=== PATIENT | female | born 1960 | race Caucasian/White ===

== ENCOUNTER → 2019-06-19 11:44 | Outpatient (CLI) | payer OTHER, SELFPAY ==
--- NOTE | 2019-06-19 11:52 | DI.CT.S_ITS ---
PROCEDURE: CT SOFT TISSUE NECK WO/W CON INDICATIONS: LOCALIZED SWELLING MASS AND LUMP IN NECK TECHNIQUE: Before and after the administration of intravenous contrast, 2.0 mm axial sections acquired through the neck and down to the mateusz. Additional 2.0 mm coronal and sagittal reformats were generated of the contrast enhanced images. For radiation dose reduction, the following was used: automated exposure control. COMPARISON: [facility], CR, CERVICAL SPINE 4 VIEWS, 12/25/2010, 15:25. [facility], MR, C-SPINE WITHOUT CONTRAST, 12/29/2010, 7:06. FINDINGS: Image quality: Excellent. Parathyroid: No parathyroid masses are seen. Thyroid: The thyroid gland demonstrates an unremarkable CT appearance. Lymph nodes: No enlarged lymph nodes seen throughout the neck. Vessels: Visualized vasculature appears patent. Neck spaces: The oropharynx, nasopharynx, and pharynx demonstrate no mucosal lesions. The vocal cords, false vocal cords, pyriform sinuses, epiglottis, vallecula, and tongue base all appear normal. Extramucosal spaces appear unremarkable. Glands: The areas of clinical concern are marked on the right side, within the region of the parotid gland. Just superior to the parotid gland, there is a rim-enhancing focus seen, as on series 6 image 14 that measures 14 x 13 mm in greatest axial dimension. The central portion of this measures up 20 Hounsfield units on precontrast imaging and 25 Hounsfield units on postcontrast imaging. Within the inferior aspect of the right parotid, there is an irregular ovoid lesion seen, as on series 5 image 46 that measures 2.4 cm in the caudal by 1.6 cm transversely, with AP extent of 1.8 cm. This lesion demonstrates heterogeneity, with mild irregular enhancement anteriorly. No left-sided parotid lesions are seen. The submandibular glands appear normal. Miscellaneous: Visualized lungs appear clear. Superficial soft tissues appear normal. Bones: No suspicious bony lesions. Visualized sinuses and mastoids appear unremarkable. Unremarkable anterior hardware is seen at the C5-C6 level. Cervical spine degenerative changes are seen, which are most prominent inferiorly. IMPRESSION: 2 lesions are seen at the areas of clinical concern involving the right parotid gland. One is seen at the inferior aspect of the right prominent and demonstrates mild heterogeneous enhancement. This may be related to a primary parathyroid mass (including a pleomorphic adenoma and Warthin's tumor), an intraparotid lymph node, or potentially metastatic disease. A 2nd lesion is seen superior to the parotid itself and has the appearance of a mildly rim-enhancing cyst. (By history, these masses have been previously biopsied. Please correlate with biopsy results.) Incidental note is made of: C5-C6 postoperative change Dictated by: Geoff Carvajal M.D. on 06/19/2019 at 13:16 Approved by: Geoff Carvajal M.D. on 06/19/2019 at 13:23
== END ==
PROVIDERS: PCP Family Medicine; Visit Provider Otolaryngology
DX: R22.1 Localized swelling, mass and lump, neck (principal)
CPT/HCPCS: 70492; Q9967

== ENCOUNTER 2020-06-25 07:21 | Observation (INO) | payer OTHER, SELFPAY ==
[2020-06-25] VITALS (25 sets, daily range): BP systolic 165–208; BP diastolic 85–117; PULSE 76–93; RESP 11–33; TEMP 36.5–36.7; O2SAT 91–98; BMI 42.0
--- NOTE | 2020-06-25 | DI.MRI.S_ITS ---
PROCEDURE: MR ANGIO HEAD WO CON INDICATIONS: FOGGY TECHNIQUE: Noncontrast axial 3-D [id number] MR angiogram, with 3-dimensional maximum intensity projection (MIP) reformats of the internal carotid arteries and posterior circulation then performed. COMPARISON: None. FINDINGS: Image quality: Excellent. Anterior circulation: Intracranial internal carotid arteries demonstrate normal size and intraluminal flow signal. The flow within the paired anterior cerebral arteries is normal and symmetric. The flow within the middle cerebral arteries is normal and symmetric. The anterior communicating artery is seen. No stenoses, occlusions, or aneurysms. Posterior circulation: Visualized portions of the vertebral arteries demonstrate normal caliber, and join to form a normal appearing basilar artery. The flow within the posterior cerebral arteries is normal and symmetric. No stenoses, occlusions, or aneurysms. IMPRESSION: No branch occlusion or flow limiting stenosis of the major intracranial arterial circulation. No evidence of intracranial aneurysm. Dictated by: Gerber Sue M.D. on 06/25/2020 at 10:55 Approved by: Gerber Sue M.D. on 06/25/2020 at 10:56
--- NOTE | 2020-06-25 07:34 | DI.CT.S_ITS ---
PROCEDURE: CT HEAD/BRAIN WO CON INDICATIONS: difficulty speaking TECHNIQUE: Noncontrast 4.5 mm thick angled axial sections acquired from the foramen magnum to the vertex, with coronal and sagittal reformats. For radiation dose reduction, the following was used: automated exposure control, adjustment of mA and/or kV according to patient size. COMPARISON: None. FINDINGS: Image quality: Excellent. CSF spaces: Basal cisterns are patent. No extra-axial fluid collections. Ventricles are normal in size and shape. Brain: No midline shift. No intracranial masses or hemorrhage. [place]-white matter interface is normal. Skull and face: Calvarium and visualized facial bones are intact, without suspicious lesions. Sinuses: Visualized sinuses and mastoids are clear. IMPRESSION: No acute intracranial finding. Dictated by: Gerber Sue M.D. on 06/25/2020 at 7:56 Approved by: Gerber Sue M.D. on 06/25/2020 at 7:57
[2020-06-25 07:44] LABS: Add Manual Diff / Slide Review NO; Basophils Absolute Auto 100 /uL (0-100); Basophils Percent Auto 1.3 % (0-2); Eosinophils Absolute Auto 200 /uL (0-450); Eosinophils Percent Auto 1.9 % (2-4); Hematocrit 47.6 % (36-46); Hemoglobin 15.8 g/dL (12.0-16.0); Lymphocytes Absolute Auto 3600 /uL (1100-4500); Lymphocytes Percent Auto 36.4 % (25-40); Mean Corpuscular HGB Conc 33.2 % (30-36); Mean Corpuscular Hemoglobin 30.4 PG (26-34); Mean Corpuscular Volume 91.6 fL (80-100); Monocytes Absolute Auto 600 /uL (0-900); Monocytes Percent Auto 6.5 % (3-14); Neutrophils Absolute Auto 5300 /uL (1500-7000); Neutrophils Percent Auto 53.9 % (50-75); Platelet Count 308 X10^3/uL (150-400); Red Blood Cell Count 5.19 X10^6/uL (4.0-5.2); Red Cell Distribution Width 14.2 % (11.6-14.8); White Blood Cell Count 9.8 X10^3/uL (4.5-11.0)
[2020-06-25 07:50] LABS: Prothrombin Time 11.3 SECONDS (10.1-12.7)
--- NOTE | 2020-06-25 07:50 | ED.NEUROSD ---
HPI - Neuro Symptoms/Deficit General Chief Complaint: Neuro Symptoms/Deficit Stated Complaint: possible stroke Time Seen by Provider: 06/25/20 07:34 Source: patient and family Mode of arrival: Wheelchair Limitations: no limitations History of Present Illness HPI Narrative: Patient is a 60-year-old female presents with a legs difficulty speaking. Difficult to tell exactly when it started but she says she has gotten up at 4:30 this morning as she thought she was normal at that time she woke up again at 6 and slowly started to feel that she has some difficulty speaking and maybe some right arm numbness. She says the episodes last about 10-20 minutes and resolved of this is her 3rd episode. I am able to understand her but she does have some mild slurring. Her speech improved while I was in the room. Related Data Previous Rx's Medication Instructions Recorded aspirin [Adult Aspirin Regimen] 81 mg PO DAILY 30 Days #30 tab 06/25/20 atorvastatin [Lipitor] 40 mg PO BEDTIME 30 Days #30 tab 06/25/20 clopidogrel 75 mg PO DAILY 21 Days #21 tab 06/25/20 Allergies Allergy/AdvReac Type Severity Reaction Status Date / Time bee venom protein (honey bee) Allergy Unknown Verified 04/19/19 19:24 NSAIDS (Non-Steroidal Allergy Unknown Verified 04/19/19 19:24 Anti-Inflamma Steroid Allergy Unknown Uncoded 04/19/19 19:24 Review of Systems Review of Systems Narrative: GENERAL: Denies chills, fatigue, malaise, fever, sweats, travel HEENT: Denies sinus pain, ear pain, sore throat, difficulty swallowing, neck pain RESPIRATORY: Denies dyspnea, cough, wheezing, hemoptysis, sputum. CARDIOVASCULAR: Denies chest pain, palpitations, orthopnea, edema GASTROINTESTINAL: Denies nausea, vomiting, abdominal pain, diarrhea, constipation, melena. : Denies dysuria, frequency, incontinence, hematuria, urinary retention, flank pain. MUSCULOSKELETAL: Denies weakness, joint pain, or bony pain SKIN: No rash, no erythema, no pruritus NEUROLOGIC: See HPI PSYCHIATRIC: No concerning psychosocial issues. 12 point review of systems is negative except for those stated above and HPI Patient History Medical History Fibromyalgia (Chronic ~2008) Herpes (Inactive ~1978) Sleep apnea (Chronic ~1999) Tinnitus (Chronic) Surgical History Anesthesia (Resolved) History of neck surgery (Resolved) History of shoulder surgery (Resolved) History of surgery (Resolved) Social History household members: spouse Smoking Status: Current every day smoker alcohol intake: never Smoking Status: Current every day smoker (1/2 pack ) Exam Initial Vital Signs Initial Vital Signs: Vital Signs Temperature 98.0 F 06/25/20 07:25 Pulse Rate 88 06/25/20 07:25 Respiratory Rate 20 06/25/20 07:25 Blood Pressure 190/117 H 06/25/20 07:25 Pulse Oximetry 98 06/25/20 07:25 GENERAL: Well-appearing, well-nourished and in no acute distress. HEENT: Head atraumatic,EOMI, pupils reactive, face symmetric, moist mucous membranes, no teeth CARDIOVASCULAR: Regular rate and rhythm without murmurs, rubs or gallops. RESPIRATORY: Breath sounds equal bilaterally, no wheezes rales or rhonchi. ABDOMEN: Soft, nontender. Normoactive bowel sounds all 4 quadrants. No guarding or rebound. EXTREMITIES: Normal range of motion, no clubbing or edema. Neurovascularly intact NEUROLOGICAL: Alert and oriented x4.Normal gait. mild dysarthria. Cranial nerves II through XII grossly intact. Good kxcage-wa-wdti, good vqga-zg-uvao, strength equal bilaterally, no dysarthria or aphasia, sensation in tact to soft touch bilaterally, no visual changes, no facial droop SKIN: Warm, dry, no laceration, no petechiae, no rashes or lesions. Scores NIH Stroke Scale Level of Conciousness: Alert, keenly responsive Ask month/age: Answers both questions correctly. Open/close eyes, close hand: Performs both tasks correctly Best gaze horizontal: Normal Visual aquino: No visual loss Facial palsy: Normal symetrical movement Left arm drift: No drift for full 10 sec Right arm drift: No drift for full 10 sec Left leg drift: No drift for full 10 sec Right leg drift: No drift for full 10 sec Limb ataxia: Absent Sensory on face/arms/legs: Normal, no sensory loss Best language: No aphasia, normal Dysarthria: Mild to mod,some slurring Extinction or inattention: No abnormality Total NIH Stroke scale score: 1 Course Orders Ordered: Discontinued Medications Aspirin (Aspirin) 325 mg PO NOW ONE Stop: 06/25/20 08:14 Last Admin: 06/25/20 08:40 Dose: 325 mg Documented by: DIAZ Atorvastatin Calcium (Lipitor) 40 mg PO BEDTIME AN Clopidogrel Bisulfate (Plavix) 300 mg PO NOW ONE Stop: 06/25/20 11:08 Last Admin: 06/25/20 11:23 Dose: 300 mg Documented by: DIAZ Clopidogrel Bisulfate (Plavix) 75 mg PO DAILY AN Hydralazine HCl (Apresoline) 10 mg IV Q6HR PRN PRN Reason: Hypertension Stop: 06/26/20 13:27 Nicotine (Nicoderm) 21 mg TOP NOW ONE Stop: 06/25/20 10:59 Last Admin: 06/25/20 11:23 Dose: 21 mg Documented by: DIAZ Vital Signs Vital signs: Vital Signs - 8 hr 06/25/20 07:25 06/25/20 07:49 06/25/20 07:50 Temperature 98.0 F Pulse Rate 88 89 89 Respiratory Rate 20 17 22 Blood Pressure 190/117 H 189/87 H Pulse Oximetry 98 95 94 06/25/20 08:00 06/25/20 08:01 06/25/20 08:30 Temperature Pulse Rate 85 84 81 Respiratory Rate 26 H 20 20 Blood Pressure 170/98 H Pulse Oximetry 93 91 95 06/25/20 09:00 06/25/20 09:05 06/25/20 09:09 Temperature Pulse Rate 77 82 78 Respiratory Rate 15 25 H 17 Blood Pressure 165/85 H Pulse Oximetry 93 91 93 MDM - Neuro Symptoms/Deficit Lab Data Attestation: I reviewed the patient's lab results. Result diagrams: 06/25/20 07:30 06/25/20 07:30 Labs: Lab Results 06/25/20 06/25/20 06/25/20 Range/Units 07:30 07:30 07:30 WBC 9.8 (4.5-11.0) X10^3/uL RBC 5.19 (4.0-5.2) X10^6/uL Hgb 15.8 (12.0-16.0) g/dL Hct 47.6 H (36-46) % MCV 91.6 (80-100) fL MCH 30.4 (26-34) PG MCHC 33.2 (30-36) % RDW 14.2 (11.6-14.8) % Plt Count 308 (150-400) X10^3/uL Neut % (Auto) 53.9 (50-75) % Lymph % (Auto) 36.4 (25-40) % [place] % (Auto) 6.5 (3-14) % Eos % (Auto) 1.9 L (2-4) % Baso % (Auto) 1.3 (0-2) % Neut # (Auto) 5300 (4583-5276) /uL Lymph # (Auto) 3600 (1929-6675) /uL [place] # (Auto) 600 (0-900) /uL Eos # (Auto) 200 (0-450) /uL Baso # (Auto) 100 (0-100) /uL PT 11.3 (10.1-12.7) SECONDS INR 1.0 (0.9-1.3) APTT 38 H (26.4-36.2) SECONDS Sodium 139 (137-145) mmol/L Potassium 4.3 (3.4-5.1) mmol/L Chloride 103 (98-107) mmol/L Carbon Dioxide 29 (22-32) mmol/L BUN 12 (7-17) mg/dL Creatinine 0.74 (0.52-1.04) mg/dL Estimated GFR > 60.0 (>60) mL/min BUN/Creatinine Ratio 16.2 (6-22) Glucose 99 (70-100) mg/dL Calcium 9.4 (8.4-10.2) mg/dL Total Bilirubin 0.5 (0.2-1.3) mg/dL AST 23 (14-36) IU/L ALT 20 (<35) IU/L Alkaline Phosphatase 68 (38-126) U/L Total Creatine Kinase 114 (30-135) U/L CK-MB (CK-2) 1.28 (<2.37) ng/mL CK-MB (CK-2) Rel Index 1.1 L (1.5-5.0) % Troponin I < 0.012 (0.01-0.034) ng/mL Total Protein 7.8 (6.3-8.2) g/dL Albumin 4.4 (3.5-5.0) g/dL Globulin 3.4 (1.7-4.1) g/dL Albumin/Globulin Ratio 1.3 (1.0-2.8) U Opiates 300ng/mL cut (Negative) Ur Oxycodone Screen (Negative) Urine Methadone Screen (Negative) Ur Barbiturates Screen (Negative) U Tricyclic Antidepress (Negative) Ur Phencyclidine Scrn (Negative) Ur Amphetamines Screen (Negative) U Methamphetamines Scrn (Negative) Ur MDMA Scrn (Ecstasy) (Negative) U Benzodiazepines Scrn (Negative) Urine Cocaine Screen (Negative) U Marijuana (THC) Screen (Negative) 06/25/20 Range/Units 08:25 WBC (4.5-11.0) X10^3/uL RBC (4.0-5.2) X10^6/uL Hgb (12.0-16.0) g/dL Hct (36-46) % MCV (80-100) fL MCH (26-34) PG MCHC (30-36) % RDW (11.6-14.8) % Plt Count (150-400) X10^3/uL Neut % (Auto) (50-75) % Lymph % (Auto) (25-40) % [place] % (Auto) (3-14) % Eos % (Auto) (2-4) % Baso % (Auto) (0-2) % Neut # (Auto) (9760-4547) /uL Lymph # (Auto) (5143-0175) /uL [place] # (Auto) (0-900) /uL Eos # (Auto) (0-450) /uL Baso # (Auto) (0-100) /uL PT (10.1-12.7) SECONDS INR (0.9-1.3) APTT (26.4-36.2) SECONDS Sodium (137-145) mmol/L Potassium (3.4-5.1) mmol/L Chloride (98-107) mmol/L Carbon Dioxide (22-32) mmol/L BUN (7-17) mg/dL Creatinine (0.52-1.04) mg/dL Estimated GFR (>60) mL/min BUN/Creatinine Ratio (6-22) Glucose (70-100) mg/dL Calcium (8.4-10.2) mg/dL Total Bilirubin (0.2-1.3) mg/dL AST (14-36) IU/L ALT (<35) IU/L Alkaline Phosphatase (38-126) U/L Total Creatine Kinase (30-135) U/L CK-MB (CK-2) (<2.37) ng/mL CK-MB (CK-2) Rel Index (1.5-5.0) % Troponin I (0.01-0.034) ng/mL Total Protein (6.3-8.2) g/dL Albumin (3.5-5.0) g/dL Globulin (1.7-4.1) g/dL Albumin/Globulin Ratio (1.0-2.8) U Opiates 300ng/mL cut Negative (Negative) Ur Oxycodone Screen Negative (Negative) Urine Methadone Screen Negative (Negative) Ur Barbiturates Screen Negative (Negative) U Tricyclic Antidepress Negative (Negative) Ur Phencyclidine Scrn Negative (Negative) Ur Amphetamines Screen Negative (Negative) U Methamphetamines Scrn Negative (Negative) Ur MDMA Scrn (Ecstasy) Negative (Negative) U Benzodiazepines Scrn Negative (Negative) Urine Cocaine Screen Negative (Negative) U Marijuana (THC) Screen Negative (Negative) Point of Care Testing Glucose POC 82 Urine Dip Bedside Urine Glucose Negative Bedside Urine Bilirubin - Negative Bedside Urine Ketone - Negative Urine Specific [place] 1.010 Bedside Urine Occult Blood - Negative Bedside Urine pH 7.0 Bedside Urine Protein - Negative Bedside Urine Urobilinogen - Negative Bedside Urine Nitrite - Negative Bedside Urine Leukocytes - Negative Esterase Imaging Data CT scan - head: Radiologist's Impression: PROCEDURE: CT HEAD/BRAIN WO CON INDICATIONS: difficulty speaking TECHNIQUE: Noncontrast 4.5 mm thick angled axial sections acquired from the foramen magnum to the vertex, with coronal and sagittal reformats. For radiation dose reduction, the following was used: automated exposure control, adjustment of mA and/or kV according to patient size. COMPARISON: None. FINDINGS: Image quality: Excellent. CSF spaces: Basal cisterns are patent. No extra-axial fluid collections. Ventricles are normal in size and shape. Brain: No midline shift. No intracranial masses or hemorrhage. [place]-white matter interface is normal. Skull and face: Calvarium and visualized facial bones are intact, without suspicious lesions. Sinuses: Visualized sinuses and mastoids are clear. IMPRESSION: No acute intracranial finding. Dictated by: Gerber Sue M.D. on 06/25/2020 at 7:56 MR head: Radiologist's Impression: PROCEDURE: MR HEAD/BRAIN WO CON INDICATIONS: tia TECHNIQUE: Noncontrast axial T1 spin echo, axial T2 fast spin echo, sagittal and axial FLAIR, coronal T2 fast spin echo, axial gradient echo, axial diffusion and ADC through the brain. COMPARISON: None. FINDINGS: Image quality: Excellent. CSF Spaces: Basal cisterns are patent. No extra-axial fluid collections. Ventricles are normal in size and shape. Brain: No intracranial masses or hemorrhage. [place]/white matter interface is normal. Brainstem appears normal. Diffusion-weighted images demonstrate a 6 mm diameter focus of elevated signal intensity within the left castellanos radiata extending into the left posterior basal ganglia, which demonstrates low ADC map and moderate FLAIR signal elevation. No chronic ischemic insults. Normal intravascular flow voids are present. Skull and face: Calvarium has normal marrow signal. Orbits appear normal. Sinuses: Sinuses and mastoids are clear. IMPRESSION: 1. Small subacute infarct within the left castellanos radiata and basal ganglia. 2. No acute process. No acute intracranial hemorrhage. Dictated by: Bina Richardson M.D. on 06/25/2020 at 10:54 CTA: Radiologist's Impression: PROCEDURE: CT ANGIO HEAD AND NECK INDICATIONS: known stroke worsening speech TECHNIQUE: Pre-contrast 4.5 mm thick sections acquired from the foramen magnum to the vertex. After the administration of intravenous contrast, 1 mm thick sections acquired from the aortic arch through the [place] of [place]. Post-contrast 4.5 mm thick sections then re-acquired from the foramen magnum to the vertex. 3-dimensional ynfpknr-irbbariiw-veupsglmyn (MIP) and/or volume rendering reformats were acquired of the central intracranial vasculature and neck separately. COMPARISON: [facility], MR, MR HEAD/BRAIN WO CON, 06/25/2020, 10:18. [facility], MR, MR ANGIO HEAD WO CON, 06/25/2020, 10:18. [facility], CT, CT HEAD/BRAIN WO CON, 06/25/2020, 7:38. FINDINGS: Image quality: Excellent. BRAIN: CSF spaces: Ventricles are normal in size and shape. Basal cisterns are patent. No extra-axial fluid collections. Brain: No midline shift. No intracranial bleeds or masses. [place]-white matter interface appears intact. Skull and face: Calvarium and facial bones appear intact, without suspicious lesions. Orbits appear normal. Sinuses: Mild mucosal thickening in the right maxillary sinus. Small mucous retention cyst versus polyp in the left maxillary sinus. The mastoids are clear. HEAD CT ANGIOGRAPHY: Anterior circulation: Intracranial internal carotid arteries are normal in flow. Atherosclerotic calcification noted in the cavernous segments of the internal carotid arteries bilaterally which causes mild narrowing of the vessels. The flow within the paired anterior cerebral arteries is normal and symmetric. 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 The flow within the middle cerebral arteries is normal and symmetric. The anterior communicating artery is seen. No aneurysms are seen. Posterior circulation: Visualized portions of the vertebral arteries demonstrate normal caliber, and join to form a normal appearing basilar artery. Flow within the posterior cerebral arteries is normal and symmetric. No aneurysms are seen. Dural sinuses demonstrate normal postcontrast enhancement. NECK CT ANGIOGRAPHY: Carotid system: The great vessels demonstrate a conventional anatomy as they arise from the aortic arch. The origins of the common carotid arteries appear patent. The common carotid arteries demonstrate normal caliber and courses. Soft and calcified atherosclerotic plaque noted in the origins of the internal carotid arteries bilaterally which causes less than 50% stenosis of the vessels. Posterior circulation: The origins of the vertebral arteries both appear widely patent. The more superior extracranial portions of both vertebral arteries also demonstrate normal courses and calibers. They join to form a normal appearing basilar artery. Soft tissues: Visualized neck soft tissues demonstrate no suspicious abnormalities. Emphysematous changes noted in the lung apices bilaterally. Bones: No suspicious bony lesions. Cervical spine fixation hardware. Spine degenerative disc disease and facet arthropathy.Visualized cervical spine appears normally aligned. IMPRESSION: 1. No acute intracranial disease process. 2. No large vessel occlusion, hemodynamically significant vascular stenosis, vascular dissection or aneurysm. Any quantitative measurements of stenosis were performed using NASCET criteria. Dictated by: Alethea Rivera MD, PhD on 06/25/2020 at 12:47 ECG Data Attestation: I personally reviewed and interpreted this ECG as follows: Prior ECG tracings: not available for review MDM Narrative Medical decision making narrative: Patient has had symptoms off and on possible last known well is at 4:30 a.m. difficult to pinpoint it may have even been at last evening, she is not a tPA candidate. She also refused iv contrast in MRI because she said previously it made her feel weird and she couldn't walk home. 1202 patient speech getting worse, she does actually have right-sided facial droop it is slurring again, she initially was refusing IV contrast stating that it made her feel weird and she could not walk home afterwards. However this time she does agree. I have explained that we need to rule out all large vessel occlusion although she does not have signs and symptoms of large vessels. She is agreeable. CT a is negative for any large vessel occlusion. She is agreeable to be admitted to the hospital MRI does show acute stroke. She is given Plavix and aspirin. PAtient refusing COVID-19 test, she doesn't believe in it. Stroke Core Measures Exclusion Criteria TPA in CVA: Symptom Onset >3 or 4.5 Hours Discharge Plan Departure Patient Disposition: Admitted as Observation Clinical Impression: Brain TIA Discharge Date/Time: 06/25/20 13:16 Referrals: Rochelle Dumont MD [Primary Care Provider] - Admit Date/Time: 06/25/20 09:11 Admit Provider: Jayson Zhang
[2020-06-25 07:52] LABS: PTT Partial Thromboplastin Tim 38 SECONDS (26.4-36.2)
[2020-06-25 07:54] LABS: Alanine Aminotransferase 20 IU/L (<35); Albumin 4.4 g/dL (3.5-5.0); Albumin Globulin Ratio 1.3 (1.0-2.8); Alkaline Phosphatase 68 U/L (38-126); Aspartate Aminotransferase 23 IU/L (14-36); BUN Creatinine Ratio 16.2 (6-22); Bilirubin Total 0.5 mg/dL (0.2-1.3); Blood Urea Nitrogen 12 mg/dL (7-17); Calcium 9.4 mg/dL (8.4-10.2); Carbon Dioxide 29 mmol/L (22-32); Chloride 103 mmol/L (98-107); Creatine Kinase 114 U/L (30-135); Estimated Glomerular Filt Rate > 60.0 mL/min (>60); Globulin 3.4 g/dL (1.7-4.1); Glucose 99 mg/dL (70-100); HEMOLYSIS < 15 (0-50); Potassium 4.3 mmol/L (3.4-5.1); Sodium 139 mmol/L (137-145); Total Protein 7.8 g/dL (6.3-8.2)
[2020-06-25 08:06] LABS: Troponin I < 0.012 ng/mL (0.01-0.034)
[2020-06-25 08:09] LABS: CKMB % Relative Index 1.1 % (1.5-5.0); Creatine Kinase MB 1.28 ng/mL (<2.37)
[2020-06-25 08:40] LABS: UR Morphine/Opiate cutoff 300 Negative (Negative); Ur Creatinine Normal (Normal); Ur Specific Gravity Normal (Normal); Urine Amphetamines Negative (Negative); Urine Barbiturates Negative (Negative); Urine Benzodiazepines Negative (Negative); Urine Cocaine Negative (Negative); Urine MDMA Negative (Negative); Urine Methadone Negative (Negative); Urine Methamphetamines Negative (Negative); Urine Oxycodone Negative (Negative); Urine Phencyclidine Negative (Negative); Urine Tetrahydrocannabinol Negative (Negative); Urine Tricyclic Antidepressant Negative (Negative); Urine pH Normal (Normal)
[2020-06-25] MEDS: ASPIRIN 325 MG TABLET PO (08:40)
--- NOTE | 2020-06-25 09:03 | DI.MRI.S_ITS ---
PROCEDURE: MR HEAD/BRAIN WO CON INDICATIONS: tia TECHNIQUE: Noncontrast axial T1 spin echo, axial T2 fast spin echo, sagittal and axial FLAIR, coronal T2 fast spin echo, axial gradient echo, axial diffusion and ADC through the brain. COMPARISON: None. FINDINGS: Image quality: Excellent. CSF Spaces: Basal cisterns are patent. No extra-axial fluid collections. Ventricles are normal in size and shape. Brain: No intracranial masses or hemorrhage. [place]/white matter interface is normal. Brainstem appears normal. Diffusion-weighted images demonstrate a 6 mm diameter focus of elevated signal intensity within the left castellanos radiata extending into the left posterior basal ganglia, which demonstrates low ADC map and moderate FLAIR signal elevation. No chronic ischemic insults. Normal intravascular flow voids are present. Skull and face: Calvarium has normal marrow signal. Orbits appear normal. Sinuses: Sinuses and mastoids are clear. IMPRESSION: 1. Small subacute infarct within the left castellanos radiata and basal ganglia. 2. No acute process. No acute intracranial hemorrhage. Dictated by: Bina Richardson M.D. on 06/25/2020 at 10:54 Approved by: Bina Richardson M.D. on 06/25/2020 at 10:56
--- NOTE | 2020-06-25 09:57 | PC.NURSE ---
patient refused Covid swab test. I explained that we don't allow visitors for positive or non tested patients. dr. wilson at bedside to speak with the patient.
--- NOTE | 2020-06-25 11:04 | P.HP_ITS ---
History of Present Illness History of Present Illness Date Patient Seen: 06/25/20 Time Patient Seen: 09:10 Chief complaint: possible stroke today Narrative: Yara Gray is a 60-year-old female who states no known past medical history, but has not seen a provider in over 10 years who presented with slurred speech starting this morning when she woke up around 430. Symptoms seem to wax and wane but were present during my interview. She also complains of some right arm tingling and mild weakness which has improved. Her last known normal was last night when she went to bed. She denies any prior history of stroke or TIA symptoms. She denies any recent chest pain, pressure, shortness of breath, nausea, vomiting, abdominal pain, dysuria, urinary frequency. In the emergency room the patient was hypertensive, but remainder vital signs were unremarkable. Her initial stroke scale was 1 but upon my examination it was 4. Her initial head CT was negative, ultimately went for MRI which did show a left-sided infarct in her basal ganglia and castellanos radiata. CTA head and neck was unremarkable after patient initially refused contrast. Patient was not a tP A candidate given that she presented outside of the window. Initial troponin was negative and further CBC and chemistries were unremarkable. Urine drug screen was negative. Patient refused COVID-19 testing. Patient History Medical History Fibromyalgia (Chronic ~2008) Herpes (Inactive ~1978) Sleep apnea (Chronic ~1999) Tinnitus (Chronic) Surgical History Anesthesia (Resolved) History of neck surgery (Resolved) History of shoulder surgery (Resolved) History of surgery (Resolved) Family & Social History Safety & Behavioral: Feels Safe in Current Yes Environment Been Physically Hurt or No Threatened By a Person Tobacco & Substance use: Smoking Status Current every day smoker Meds Home Medications and Allergies Home Medications Medication Instructions Recorded Confirmed Type aspirin [Adult Aspirin Regimen] 81 mg PO DAILY 30 Days #30 tab 06/25/20 Rx atorvastatin [Lipitor] 40 mg PO BEDTIME 30 Days #30 tab 06/25/20 Rx clopidogrel 75 mg PO DAILY 21 Days #21 tab 06/25/20 Rx Allergies Allergy/AdvReac Type Severity Reaction Status Date / Time bee venom protein (honey bee) Allergy Unknown Verified 04/19/19 19:24 NSAIDS (Non-Steroidal Allergy Unknown Verified 04/19/19 19:24 Anti-Inflamma Steroid Allergy Unknown Uncoded 04/19/19 19:24 Review of Systems Review of Systems Narrative: All other systems reviewed with the patient and are negative unless otherwise stated. Exam Vital Signs (past 8 hours): - 06/25/20 07:25 06/25/20 07:49 06/25/20 07:50 Temperature 98.0 F Pulse Rate 88 89 89 Respiratory Rate 20 17 22 Blood Pressure 190/117 H 189/87 H Pulse Oximetry 98 95 94 06/25/20 08:00 06/25/20 08:01 06/25/20 08:30 Temperature Pulse Rate 85 84 81 Respiratory Rate 26 H 20 20 Blood Pressure 170/98 H Pulse Oximetry 93 91 95 06/25/20 09:00 06/25/20 09:05 06/25/20 09:09 Temperature Pulse Rate 77 82 78 Respiratory Rate 15 25 H 17 Blood Pressure 165/85 H Pulse Oximetry 93 91 93 06/25/20 09:30 06/25/20 09:45 06/25/20 10:00 Temperature Pulse Rate 93 H 76 80 Respiratory Rate 33 H 17 22 Blood Pressure 167/90 H 173/90 H Pulse Oximetry 94 94 94 Oxygen Delivery Method Room Air Narrative Exam Narrative: GENERAL APPEARANCE: Well developed, well nourished, in no acute distress. Sitting upright in ED stretcher. SKIN: Inspection of the skin reveals no rashes, ulcerations or petechiae. HEENT: Normocephalic atraumatic, extraocular muscles are intact, oropharynx is clear and mucous membranes are moist, neck is supple without adenopathy NECK: Supple and symmetric. There was no thyroid enlargement, and no tenderness, or masses were felt. CHEST: Normal AP diameter and normal contour without any kyphoscoliosis. LUNGS: Auscultation of the lungs revealed no wheezes, rhonchi, or rales. CARDIOVASCULAR: There was a regular rate and rhythm without any murmurs, ga llops, rubs. Peripheral pulses were 2+ and symmetric. ABDOMEN: Soft and nontender with normal bowel sounds. No ascites was noted. MUSCULOSKELETAL: There was no tenderness or effusions noted. Muscle strength and tone were normal. EXTREMITIES: No cyanosis, clubbing or edema. NEUROLOGIC: Alert and oriented x 3. Mildly anxious. Evident dysarthria with mild right facial asymmetry and reported decrease in sensation on her right face. Stroke scale as documented below. Objective Labs Result Diagrams: 06/25/20 07:30 06/25/20 07:30 Labs: Laboratory Results - last 24 hr 06/25/20 06/25/20 06/25/20 07:30 07:30 07:30 WBC 9.8 RBC 5.19 Hgb 15.8 Hct 47.6 H MCV 91.6 MCH 30.4 MCHC 33.2 RDW 14.2 Plt Count 308 Neut % (Auto) 53.9 Lymph % (Auto) 36.4 [place] % (Auto) 6.5 Eos % (Auto) 1.9 L Baso % (Auto) 1.3 Neut # (Auto) 5300 Lymph # (Auto) 3600 [place] # (Auto) 600 Eos # (Auto) 200 Baso # (Auto) 100 PT 11.3 INR 1.0 APTT 38 H Sodium 139 Potassium 4.3 Chloride 103 Carbon Dioxide 29 BUN 12 Creatinine 0.74 Estimated GFR > 60.0 BUN/Creatinine Ratio 16.2 Glucose 99 Calcium 9.4 Total Bilirubin 0.5 AST 23 ALT 20 Alkaline Phosphatase 68 Total Creatine Kinase 114 CK-MB (CK-2) 1.28 CK-MB (CK-2) Rel Index 1.1 L Troponin I < 0.012 Total Protein 7.8 Albumin 4.4 Globulin 3.4 Albumin/Globulin Ratio 1.3 U Opiates 300ng/mL cut Ur Oxycodone Screen Urine Methadone Screen Ur Barbiturates Screen U Tricyclic Antidepress Ur Phencyclidine Scrn Ur Amphetamines Screen U Methamphetamines Scrn Ur MDMA Scrn (Ecstasy) U Benzodiazepines Scrn Urine Cocaine Screen U Marijuana (THC) Screen 06/25/20 08:25 WBC RBC Hgb Hct MCV MCH MCHC RDW Plt Count Neut % (Auto) Lymph % (Auto) [place] % (Auto) Eos % (Auto) Baso % (Auto) Neut # (Auto) Lymph # (Auto) [place] # (Auto) Eos # (Auto) Baso # (Auto) PT INR APTT Sodium Potassium Chloride Carbon Dioxide BUN Creatinine Estimated GFR BUN/Creatinine Ratio Glucose Calcium Total Bilirubin AST ALT Alkaline Phosphatase Total Creatine Kinase CK-MB (CK-2) CK-MB (CK-2) Rel Index Troponin I Total Protein Albumin Globulin Albumin/Globulin Ratio U Opiates 300ng/mL cut Negative Ur Oxycodone Screen Negative Urine Methadone Screen Negative Ur Barbiturates Screen Negative U Tricyclic Antidepress Negative Ur Phencyclidine Scrn Negative Ur Amphetamines Screen Negative U Methamphetamines Scrn Negative Ur MDMA Scrn (Ecstasy) Negative U Benzodiazepines Scrn Negative Urine Cocaine Screen Negative U Marijuana (THC) Screen Negative Assessment & Plan Assessment & Plan narrative: Yara Gray is a 60-year-old female who states no known past medical history, but has not seen a provider in over 10 years who presented with slurred speech starting this morning when she woke up around 430, she has subsequently developed some right-sided facial asymmetry and facial numbness. MRI was positive for an acute infarct in the left basal ganglia and castellanos radiata. She is admitted under inpatient status for an acute CVA. 1. Acute CVA, present on admission -patient last known normal was last evening, presented outside of tPA window. CT head, and CTA head and neck were unremarkable and did not show any significant vascular disease. -MR without contrast was performed as the patient refused contrast initially, this found a small acute infarct in her left castellanos radiata and basal ganglia. -PT/OT/speech evaluation, dysphagia diet if she tolerates swallow screening. -will send A1c, TSH, and lipid panel -patient with a stroke scale less than 5, will start aspirin daily. Patient was loaded with Plavix as well and will continue 75 mg daily for 21 days. -will order echocardiogram -continue telemetry -management of hypertension as noted below 2. Hypertension, present on admission -may be in the setting of an acute infarct. Will allow for permissive hypertension for the 1st 24 hours. Will treat with as needed hydralazine for systolic blood pressures greater than 180. -will likely need continued chronic medications but will continue to monitor. Code: Full, surrogate decision makers the patient's Dispo: Admitted under inpatient status as her stay is expected to exceed 2 midnights DVT: Lovenox daily COVID-19 COVID-19 status: Not tested (Patient refused COVID-19 testing) Scores NIHSS Level of Conciousness: Alert, keenly responsive Ask month/age: Answers both questions correctly. Open/close eyes, close hand: Performs both tasks correctly Best gaze horizontal: Normal Visual aquino: No visual loss Facial palsy: Minor paralysis, flattened nasolabial fold, asymmetry on smiling Left arm drift: No drift for full 10 sec Right arm drift: No drift for full 10 sec Left leg drift: No drift for full 5 sec Right leg drift: No drift for full 5 sec Limb ataxia: Absent Sensory on face/arms/legs: Mild to moderate sensory loss, can tell touch Best language: Mild to moderate, slurs some words Dysarthria: Mild to mod,some slurring Extinction or inattention: No abnormality Total NIH Stroke scale score: 4
--- NOTE | 2020-06-25 11:04 | PC.NURSE ---
speaking with patient and her spouse, patient wants to wait to decide if she will be admitted off of the MRI results, Dr wilson also explained that the patient would need an ultrasound of her neck during her stay. I said even if the MRI results are negative we'd like you to stay for observation, patient replied i can think for myself patient then said if i have to go home to have a cigarette i will
[2020-06-25] MEDS: NICOTINE 21 MG PATCH TOP (11:23)
[2020-06-25] MEDS: CLOPIDOGREL 75 MG TABLET 300 MG PO (11:23)
--- NOTE | 2020-06-25 11:33 | PC.NURSE ---
patient told by dr wilson that she is having a stroke, via MRI results. patient now states why aren't we sending her to a different hospital dr wilson is explaining the reasons to stay and why at this time it isn't necessary but that futures results may change that.
--- NOTE | 2020-06-25 11:57 | PC.NURSE ---
minor right sided facial droop. MD at bedside.
--- NOTE | 2020-06-25 12:29 | DI.CT.S_ITS ---
PROCEDURE: CT ANGIO HEAD AND NECK INDICATIONS: known stroke worsening speech TECHNIQUE: Pre-contrast 4.5 mm thick sections acquired from the foramen magnum to the vertex. After the administration of intravenous contrast, 1 mm thick sections acquired from the aortic arch through the [place]. Post-contrast 4.5 mm thick sections then re-acquired from the foramen magnum to the vertex. 3-dimensional lgxnzcd-xmgxydgie-ckudpifdlo (MIP) and/or volume rendering reformats were acquired of the central intracranial vasculature and neck separately. COMPARISON: [facility], MR, MR HEAD/BRAIN WO CON, 06/25/2020, 10:18. [facility], MR, MR ANGIO HEAD WO CON, 06/25/2020, 10:18. [facility], CT, CT HEAD/BRAIN WO CON, 06/25/2020, 7:38. FINDINGS: Image quality: Excellent. BRAIN: CSF spaces: Ventricles are normal in size and shape. Basal cisterns are patent. No extra-axial fluid collections. Brain: No midline shift. No intracranial bleeds or masses. [place]-white matter interface appears intact. Skull and face: Calvarium and facial bones appear intact, without suspicious lesions. Orbits appear normal. Sinuses: Mild mucosal thickening in the right maxillary sinus. Small mucous retention cyst versus polyp in the left maxillary sinus. The mastoids are clear. HEAD CT ANGIOGRAPHY: Anterior circulation: Intracranial internal carotid arteries are normal in flow. Atherosclerotic calcification noted in the cavernous segments of the internal carotid arteries bilaterally which causes mild narrowing of the vessels. The flow within the paired anterior cerebral arteries is normal and symmetric. 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 The flow within the middle cerebral arteries is normal and symmetric. The anterior communicating artery is seen. No aneurysms are seen. Posterior circulation: Visualized portions of the vertebral arteries demonstrate normal caliber, and join to form a normal appearing basilar artery. Flow within the posterior cerebral arteries is normal and symmetric. No aneurysms are seen. Dural sinuses demonstrate normal postcontrast enhancement. NECK CT ANGIOGRAPHY: Carotid system: The great vessels demonstrate a conventional anatomy as they arise from the aortic arch. The origins of the common carotid arteries appear patent. The common carotid arteries demonstrate normal caliber and courses. Soft and calcified atherosclerotic plaque noted in the origins of the internal carotid arteries bilaterally which causes less than 50% stenosis of the vessels. Posterior circulation: The origins of the vertebral arteries both appear widely patent. The more superior extracranial portions of both vertebral arteries also demonstrate normal courses and calibers. They join to form a normal appearing basilar artery. Soft tissues: Visualized neck soft tissues demonstrate no suspicious abnormalities. Emphysematous changes noted in the lung apices bilaterally. Bones: No suspicious bony lesions. Cervical spine fixation hardware. Spine degenerative disc disease and facet arthropathy.Visualized cervical spine appears normally aligned. IMPRESSION: 1. No acute intracranial disease process. 2. No large vessel occlusion, hemodynamically significant vascular stenosis, vascular dissection or aneurysm. Any quantitative measurements of stenosis were performed using NASCET criteria. Dictated by: Alethea Rivera MD, PhD on 06/25/2020 at 12:47 Approved by: Alethea Rivera MD, PhD on 06/25/2020 at 12:58
--- NOTE | 2020-06-25 15:03 | P.DS_ITS ---
History of Present Illness History of Present Illness Date Patient Seen: 06/25/20 Time Patient Seen: 15:04 Chief complaint: possible stroke today Narrative: Yara Gray is a 60-year-old female who states no known past medical history, but has not seen a provider in over 10 years who presented with slurred speech starting this morning when she woke up around 430. Symptoms seem to wax and wane but were present during my interview. She also complains of some right arm tingling and mild weakness which has improved. Her last known normal was last night when she went to bed. She denies any prior history of stroke or TIA symptoms. She denies any recent chest pain, pressure, shortness of breath, nausea, vomiting, abdominal pain, dysuria, urinary frequency. In the emergency room the patient was hypertensive, but remainder vital signs were unremarkable. Her initial stroke scale was 1 but upon my examination it was 4. Her initial head CT was negative, ultimately went for MRI which did show a left-sided infarct in her basal ganglia and castellanos radiata. CTA head and neck was unremarkable after patient initially refused contrast. Patient was not a tP A candidate given that she presented outside of the window. Initial troponin was negative and further CBC and chemistries were unremarkable. Urine drug screen was negative. Patient refused COVID-19 testing. Discharge Providers Provider Date of admission: 06/25/20 09:11 Discharge Date: 06/25/20 Primary care physician: Rochelle Dumont MD Consults: 06/25/20 13:43 Consult to Occupational Therapy Evaluate & Treat Comment: Physician Instructions: Evaluate and treat Consult to Physical Therapy Evaluate & Treat Comment: Physician Instructions: Evaluate and Treat Consult to Speech Therapy Evaluate & Treat Comment: Physician Instructions: Evaluate and treat Discharge provider: Jayson Zhang DO Summary Hospital Course Discharge Diagnosis: Acute CVA, present on admission Hypertension, unknown chronicity, present on admission Hospital Course: This is a 60-year-old female who presented with symptoms of dysarthria as well as some right-sided numbness. She had waxing and waning features and during my exam had some facial asymmetry that then resolved upon arrival to the floor. Patient was seemingly not trust full of staff and easily agitated. She ultimately decided to leave against medical advice shortly after arrival to the floor because she was told she could not have a regular meal until she was seen by speech therapy. At that point the patient was not happy with her care and felt that she no longer in her best interest to stay due to a variety of issues. She was advised of the risks including worsening stroke symptoms, possible intracranial bleeding, aspiration due to difficulty swallowing, imbalance and possible falls, and . She was able to articulate these concerns back to me but still wished to leave. She was agreeable to discharge with aspirin, Plavix, and initiation of a high-intensity statin. I did recommend that she follow-up with a primary care provider for further management or return to the emergency room if she again develops symptoms. She was hypertensive on discharge, is unclear if this is due to agitation, stroke, or underlying essential hypertension. She should follow-up with a primary care physician for further management. Time Spent with Patient Time spent: Greater than 30 minutes Exam Vital Signs (past 8 hours): - 06/25/20 07:25 06/25/20 07:49 06/25/20 07:50 Temperature 98.0 F Pulse Rate 88 89 89 Respiratory Rate 20 17 22 Blood Pressure 190/117 H 189/87 H Pulse Oximetry 98 95 94 06/25/20 08:00 06/25/20 08:01 06/25/20 08:30 Temperature Pulse Rate 85 84 81 Respiratory Rate 26 H 20 20 Blood Pressure 170/98 H Pulse Oximetry 93 91 95 06/25/20 09:00 06/25/20 09:05 06/25/20 09:09 Temperature Pulse Rate 77 82 78 Respiratory Rate 15 25 H 17 Blood Pressure 165/85 H Pulse Oximetry 93 91 93 06/25/20 09:30 06/25/20 09:45 06/25/20 10:00 Temperature Pulse Rate 93 H 76 80 Respiratory Rate 33 H 17 22 Blood Pressure 167/90 H 173/90 H Pulse Oximetry 94 94 94 06/25/20 10:49 06/25/20 10:52 06/25/20 11:00 Temperature Pulse Rate 80 77 Respiratory Rate 20 17 Blood Pressure 182/112 H Pulse Oximetry 91 95 96 06/25/20 11:01 06/25/20 11:30 06/25/20 11:41 Temperature Pulse Rate 81 80 79 Respiratory Rate 22 24 Blood Pressure 200/117 H 208/95 H Pulse Oximetry 96 93 06/25/20 12:00 06/25/20 12:01 06/25/20 12:29 Temperature Pulse Rate 80 79 81 Respiratory Rate 22 21 22 Blood Pressure 193/114 H 203/101 H Pulse Oximetry 94 93 95 06/25/20 12:30 06/25/20 13:00 06/25/20 13:01 Temperature Pulse Rate 81 81 79 Respiratory Rate 16 11 L Blood Pressure 191/109 H 206/99 H Pulse Oximetry 95 96 95 Oxygen Delivery Method Room Air Narrative Exam Narrative: Limited exam per patient agitation. Anxious appearing female. Her facial asymmetry from admitting visit in the emergency room was resolved. She was moving all extremities equally. Her speech had improved. Objective Labs Result Diagrams: 06/25/20 07:30 06/25/20 07:30 Labs: Laboratory Results - last 24 hr 06/25/20 06/25/20 06/25/20 07:30 07:30 07:30 WBC 9.8 RBC 5.19 Hgb 15.8 Hct 47.6 H MCV 91.6 MCH 30.4 MCHC 33.2 RDW 14.2 Plt Count 308 Neut % (Auto) 53.9 Lymph % (Auto) 36.4 [place] % (Auto) 6.5 Eos % (Auto) 1.9 L Baso % (Auto) 1.3 Neut # (Auto) 5300 Lymph # (Auto) 3600 [place] # (Auto) 600 Eos # (Auto) 200 Baso # (Auto) 100 PT 11.3 INR 1.0 APTT 38 H Sodium 139 Potassium 4.3 Chloride 103 Carbon Dioxide 29 BUN 12 Creatinine 0.74 Estimated GFR > 60.0 BUN/Creatinine Ratio 16.2 Glucose 99 Calcium 9.4 Total Bilirubin 0.5 AST 23 ALT 20 Alkaline Phosphatase 68 Total Creatine Kinase 114 CK-MB (CK-2) 1.28 CK-MB (CK-2) Rel Index 1.1 L Troponin I < 0.012 Total Protein 7.8 Albumin 4.4 Globulin 3.4 Albumin/Globulin Ratio 1.3 U Opiates 300ng/mL cut Ur Oxycodone Screen Urine Methadone Screen Ur Barbiturates Screen U Tricyclic Antidepress Ur Phencyclidine Scrn Ur Amphetamines Screen U Methamphetamines Scrn Ur MDMA Scrn (Ecstasy) U Benzodiazepines Scrn Urine Cocaine Screen U Marijuana (THC) Screen 06/25/20 08:25 WBC RBC Hgb Hct MCV MCH MCHC RDW Plt Count Neut % (Auto) Lymph % (Auto) [place] % (Auto) Eos % (Auto) Baso % (Auto) Neut # (Auto) Lymph # (Auto) [place] # (Auto) Eos # (Auto) Baso # (Auto) PT INR APTT Sodium Potassium Chloride Carbon Dioxide BUN Creatinine Estimated GFR BUN/Creatinine Ratio Glucose Calcium Total Bilirubin AST ALT Alkaline Phosphatase Total Creatine Kinase CK-MB (CK-2) CK-MB (CK-2) Rel Index Troponin I Total Protein Albumin Globulin Albumin/Globulin Ratio U Opiates 300ng/mL cut Negative Ur Oxycodone Screen Negative Urine Methadone Screen Negative Ur Barbiturates Screen Negative U Tricyclic Antidepress Negative Ur Phencyclidine Scrn Negative Ur Amphetamines Screen Negative U Methamphetamines Scrn Negative Ur MDMA Scrn (Ecstasy) Negative U Benzodiazepines Scrn Negative Urine Cocaine Screen Negative U Marijuana (THC) Screen Negative Discharge Plan Discharge Plan Patient Disposition: Left Against Medical Advice Discharge comment: You were admitted to the hospital with a stroke. You decided to leave the hospital against medical advice after an extensive discussion but you understand the risks of leaving. I will send 3 new medications. Please follow up with a primary care provider as soon as possible or return to the ER if you develop more symptoms. Discharge orders & Medications Prescriptions: New atorvastatin [Lipitor] 20 mg Tablet 40 mg PO BEDTIME 30 Days Qty: 30 RF: 0 clopidogrel 75 mg Tablet 75 mg PO DAILY 21 Days Qty: 21 RF: 0 aspirin [Adult Aspirin Regimen] 81 mg tablet,delayed release (DR/EC) 81 mg PO DAILY 30 Days Qty: 30 RF: 0 Follow up/Referrals: Rochelle Dumont MD [Primary Care Provider] - Discharge Health Status Health Concerns: Acute CVA Diet/Activity/Treatments Diet: Diet as Tolerated Activity: As tolerated Discharge Data Primary Care Provider: Rochelle Dumont Attending Provider: Jayson Zhang Admit Date/Time: 06/25/20 09:11 Quality VTE Deep Vein Thrombosis/Pulmonary Embolism Present on Admission: No
--- NOTE | 2020-06-25 15:20 | PC.NURSE ---
Pt admitted to rm 226 from ED via w/c on RA. Pt is AO x3 and making needs known with clear speech. She does have a slight lisp due to being edentulous but otherwise NIH 1. She states she feels her speech is normal. Denies any neuro symptoms. Admission assessment completed. Pt declines MRSA swab stating I do not believe in unnecessary medical testing. She relates some statistics regarding COVID 19 and expresses frustration regarding testing without symptoms. Educated pt to facility policy and rationale behind COVID testing and she verbalizes understanding and is accepting of rationale but continues to decline testing. She is interested in getting something to eat and drink. Reported to hospitalist and orders received for dysphagia diet. Updated pt on diet and available items. Pt became angry and started yelling. She would really like a cheeseburger. Requested clarification of orders from hospitalist who states [facility] should eval and advance per recs. Called to [facility] to inquire eta for eval. [facility] states they should be here by 1700 today. Pt was dissatisfied with this and did not allow this RN to educate to rationale. She states that she will just go home. Updated hospitalist who spoke with pt regarding need for obs r/t stroke, etc. Pt declines admission. She states that she feels judged since she declined COVID 19 testing. Attempted to reassure pt that we take care of people regardless of beliefs; however pt is not redirectable at this time. Removed PIV and monitoring tech. Pt dressed self and gathered all belongings. Pt independently ambulated to exit escorted by [employer] CLERK. Gait steady. Pt refused to sign AMA paperwork.
== END 2020-06-25 15:05 | disposition left against medical advice (07) ==
LOC: ED 08:55 → AC 09:27 → ICU 15:03 → AC 06-27 15:54
PROVIDERS: Admitting Provider Internal Medicine; Emergency Provider Emergency Medicine; PCP Family Medicine; Referring Provider Emergency Medicine; Visit Provider Internal Medicine
DX: I63.89 Other cerebral infarction (principal); R47.81 Slurred speech; R20.0 Anesthesia of skin; I10 Essential (primary) hypertension; M79.7 Fibromyalgia; G47.30 Sleep apnea, unspecified; F17.210 Nicotine dependence, cigarettes, uncomplicated; Z53.29 Procedure and treatment not carried out because of patient's decision for other reasons
CPT/HCPCS: 36415; 70450; 70496; 70498; 70544; 70551; 80053; 80305; 81003; 82550; 82553; 82962; 84484; 85025; 85610; 85730; 93005; 99285; G0378; Q9967

== ENCOUNTER → 2020-07-14 13:33 | Outpatient (CLI) | payer OTHER, SELFPAY ==
[2020-06-27 08:20] VITALS: BMI 42.0
== END ==
PROVIDERS: Family Provider Internal Medicine; PCP Family Medicine; Referring Provider Internal Medicine; Visit Provider Internal Medicine
DX: R00.0 Tachycardia, unspecified (principal)
CPT/HCPCS: 0296T

== ENCOUNTER → 2020-07-22 15:52 | Outpatient (CLI) | payer OTHER, SELFPAY ==
[2020-06-27 08:20] VITALS: BMI 42.0
--- NOTE | 2020-07-22 15:54 | DI.ECHO.S_ITS ---
[facility]---------+ [facility] +---------+ : : [address] : [place] : : : : [id number] : : : : Phone: [phone]+ Echocardiogram Report + + :Name: VENU EDGE Study Date: 07/22/2020 Height: 65 in : :[facility] Weight: 250 lb : : Gender: Female BSA: 2.2 m2 : :: 1960 Age: 60 yrs BP: 189/102 mmHg: :Reason For Study: CVA : :Ordering Physician: FAM, : :KIARRA Manley Performed By: Melvi Sharif : :Referring: KIARRA OTTO : + + Interpretation Summary Normal sinus rhythm. Normal LV size and wall thickness; normal wall motion and LV systolic function. EF is 60-65%. Normal chamber sizes. No valvular abnormalities. No PFO based on agitated saline study. No prior study available for comparison. No source of embolism identified. Procedure: A two-dimensional transthoracic echocardiogram with color flow and Doppler was performed. The study quality was technically difficult. There is no prior echocardiogram noted for this patient. A saline contrast injection was performed to assess for cardiac shunting. The injection was performed through an intravenous line in the left arm. Left Ventricle: The left ventricle is normal in size and wall thickness. The ejection fraction is estimated to be 60-65%. Diastolic parameters suggest a relaxation abnormality of the left ventricle, consistent with probable normal filling pressures. Right Ventricle: The right ventricle is normal in size and function. Atria: Both atria are normal in size. There is no Doppler evidence for an interatrial shunt. Mitral Valve: The mitral valve is normal in structure and function. There is trace mitral regurgitation. Aortic Valve: The aortic valve is not well visualized. There is no aortic valve stenosis. No aortic regurgitation is present. Tricuspid Valve: The tricuspid valve is not well visualized, but is grossly normal. Pulmonary artery pressures cannot be estimated because of the lack of a measurable TR jet velocity but the IVC suggests a CVP of around 3 mmHg. There is a trace or physiologic amount of tricuspid regurgitation. Pulmonic Valve: The pulmonic valve is not well visualized. There is no pulmonic valvular regurgitation. Great Vessels: The aortic root is normal size. The ascending aorta could not be visualized. The IVC is of normal diameter and collapses greater than 50% with a sniff. This suggests a low right atrial pressure of 3 mm Hg. Pericardium/ Pleura There is no pericardial effusion. There is no pleural effusion. MMode/2D Measurements & Calculations LVIDd: 5.8 cm LVOT diam: 2.0 cm LVIDs: 4.0 cm Ao root diam: 2.9 cm FS: 30.5 % IVSd: 0.95 cm LVPWd: 0.99 cm LV valenzuela. diameter/BSA (cm/m^2): 2.7 LV sys. diameter/BSA (cm/m^2): 1.8 LA A2 area: 20.2 cm2 RA long axis: 4.2 cm LA A4 area: 12.9 cm2 RA area: 11.7 cm2 LA length (vol): 4.3 cm RA vol: 27.5 ml LA vol: 51.7 ml RA : 12.6 ml/m2 LA vol index: 23.8 ml/m2 IVC diam: 1.3 cm RVD1 (basal): 2.6 cm TAPSE: 2.1 cm Doppler Measurements & Calculations Ao V2 max: 156.8 cm/sec LVOT Max Renetta: 92.8 cm/sec Ao V2 mean: 105.8 cm/sec LV V1 max P.4 mmHg Ao max P.8 mmHg LV V1 VTI: 17.1 cm Ao mean P.1 mmHg EVA(I,D): 1.9 cm2 Ao V2 VTI: 29.0 cm EVA(V,D): 1.9 cm2 sev ratio: 0.59 EVA indexed to BSA (cm^2/m^2): 0.89 MV E max renetta: 77.6 cm/sec PA V2 max: 67.6 cm/sec MV A max renetta: 92.8 cm/sec PA V2 mean: 46.5 cm/sec MV E/A: 0.84 PA mean P.98 mmHg Med Peak E' Renetta: 8.4 cm/sec PA pr(Accel): 19.1 mmHg E/E' med: 9.2 Lat Peak E' Renetta: 5.8 cm/sec E/E' lat: 13.5 E/e' average: 11.3 MV dec time: 0.23 sec SV([facility]): 56.3 ml Electronically signed by: Ana Licona M.D. on Reading Physician:07/23/2020 09:39 AM
== END ==
PROVIDERS: Family Provider Internal Medicine; PCP Internal Medicine; Referring Provider Internal Medicine; Visit Provider Internal Medicine
DX: I63.9 Cerebral infarction, unspecified (principal)
CPT/HCPCS: 93306

== ENCOUNTER → 2020-07-28 16:47 | Outpatient (CLI) | payer OTHER, SELFPAY ==
[2020-07-23 09:35] VITALS: BMI 42.0
--- NOTE | 2020-07-28 16:49 | DI.RAD.S_ITS ---
PROCEDURE: XR HIP W PEL IF DONE LT 2V INDICATIONS: chronic left hip pain TECHNIQUE: AP view of the pelvis and frogleg lateral view of the left hip. COMPARISON: [facility], , HIP 2V LEFT, 04/11/2009, 15:00. FINDINGS: Bones: No acute fractures or dislocations. Pelvic ring appears intact. No suspicious bony lesions. Moderate degenerative changes are seen in the left hip with joint space narrowing and marginal osteophyte formation. Similar findings are seen in the contralateral right hip. Soft tissues: The visualized bowel gas pattern is normal. No suspicious soft tissue calcifications. IMPRESSION: No acute osseous abnormality. 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 on 07/28/2020 at 17:16 Approved by: Austin Yu M.D. on 07/28/2020 at 17:17
== END ==
PROVIDERS: Family Provider Internal Medicine; PCP Internal Medicine; Referring Provider Internal Medicine; Visit Provider Internal Medicine
DX: M25.552 Pain in left hip (principal); G89.29 Other chronic pain
CPT/HCPCS: 73502